=== PATIENT | female | born 1965 | race Hispanic/Latino ===

== ENCOUNTER 2019-11-13 07:52 | Outpatient (CLI) | payer OTHER ==
[2019-11-13 17:10] LABS: #Basophils 0.1 thou/uL (0.0-0.2); #Eosinphils 0.1 thou/uL (0.0-0.7); #Lymphocytes 2.4 thou/uL (1.20-3.40); #Monocytes 0.5 thou/uL (0.11-0.59); #Neutrophils 3.6 thou/uL (1.40-6.50); %Basophils 1.6 % (0.0-1.0); %Eosinophils 2.2 % (0.0-10.0); %Lymphocytes 35.4 % (21.0-51.0); %Monocytes 7.7 % (0.0-10.0); %Neutrophils 53.2 % (42.0-75.0); Hemoglobin 13.3 g/dL (12.0-16.0); Mean Corpuscular HGB CONC 33.6 g/dL (32.0-36.0); Mean Corpuscular Hemoglobin 30.1 pg (27.0-31.0); Mean Corpuscular Volume 89.6 fL (78.0-98.0); Platelet Count 287 thou/uL (130-400); Red Blood Cell (RBC) Count 4.42 mill/uL (4.20-5.40); White Blood Cell (WBC) Count 6.8 thou/uL (4.8-10.8)
[2019-11-13 17:29] LABS: Anion Gap 10 mmol/L (10-20); BUN (Urea Nitrogen) 17 mg/dL (9.8-20.1); Calc. Creatinine Clearance 0 mL/min (70-130); Calcium 9.3 mg/dL (7.8-10.44); Carbon Dioxide 26 mmol/L (22-29); Chloride 105 mmol/L (98-107); Estimated GFR-MDRD 86; Glucose 139 mg/dL (70-105); Potassium 4.1 mmol/L (3.5-5.1); Sodium 137 mmol/L (136-145)
[2019-11-14 11:03] LABS: SARS-CoV-2 MS2 Positive; SARS-CoV-2 N Gene Negative; SARS-CoV-2 S Gene Negative; SARS-CoV-2 orf1ab Negative
== END 2019-11-13 07:53 | disposition home or self-care (01) ==
LOC: LABBT 07:52
PROVIDERS: ATTEND Surgery
DX: Z01.812 Encounter for preprocedural laboratory examination (principal); Z11.59 Encounter for screening for other viral diseases
CPT/HCPCS: 80048; 85025; 87635; U0003

== ENCOUNTER 2019-11-15 06:30 | Day surgery (SDC) | payer MEDICAID, SELFPAY ==
[2019-11-13 15:41] VITALS: BMI 48.4
--- NOTE | 2019-11-15 08:12 | MMO ---
Mammographically guided Needle localization left breast: 11/15/2019 HISTORY: 54-year-old female with DCIS confirmed by stereotactic biopsy. Surgical excision required. TECHNIQUE: Signed informed consent obtained. Left breast compressed in true lateral position with fenestrated pa ddle. Post stereotactic biopsy clip targeted. Lateral approach. Lateral breast skin prepped and draped in usual sterile fashion. 25-gauge needle used to apply buffered lidocaine superficially and d eeply. 7.5 cm [place] needle advanced. Breast then compressed in LCC view.. Needle tip retracted appropriate amount. Wire deployed. Patient tolerated procedure well. No complications. IMPRESSION: Successful needle localization of postbiopsy clip.
--- NOTE | 2019-11-15 10:02 | NM ---
Nuclear medicine lymphoscintigraphy: 11/15/2019 HISTORY: 44-year-old female with DCIS of left breast TECHNIQUE: Signed informed consent obtained. Alcohol swabs applied to each site prior to each injection. 30-gaug e needle used to apply buffered lidocaine in 4 spots in periareolar location. A total of 0.4 mCi of technetium 99m-filtered sulfur colloid was injected with 4 separate tuberculin syringes with 4 separa te 30-gauge needles, at those same 4 periareolar locations. Patient tolerated procedure well. No complications. Immediate anterior and lateral scintigraphic images. FINDINGS: Single sentinel axillary lymph node is demonstrated. IMPRESSION: Successful lymphoscintigraphy with demonstration of sentinel lymph node.
[2019-11-15] MEDS ORDERED: Fentanyl 100 MCG/2 ML VIAL ONE ×4 (11:33→15:26)
[2019-11-15] MEDS ORDERED: Midazolam HCl 2 mg/2 ml Vial ONE (11:33)
[2019-11-15] MEDS ORDERED: Lidocaine 2% Jelly 5 ML TUBE ONE (11:33)
[2019-11-15] MEDS ORDERED: Isosulfan Blue 50 MG/5 ML VIAL ONE (11:42)
[2019-11-15] MEDS ORDERED: Bupivacaine 0.25% HCL 30 ML VIAL ONE (11:45)
[2019-11-15] MEDS ORDERED: Lidocaine 1% w/Epinephrine 1:100K 20 ML VIAL ONE (11:45)
[2019-11-15] MEDS ORDERED: Dexamethasone 20 MG/5 ML VIAL ONE (13:31)
[2019-11-15] MEDS ORDERED: Lidocaine 1% PF 5 ML VIAL ONE (13:31)
[2019-11-15] MEDS ORDERED: Ondansetron PF 4 MG/2 ML Vial ONE ×2 (13:31→14:33)
[2019-11-15] MEDS ORDERED: PROPOFOL 200 MG/20 ML VIAL ONE (13:31)
--- NOTE | 2019-11-15 14:19 | MMO ---
Radiograph surgical specimen: 11/15/2019 HISTORY: 54-year-old female status post needle localization for DCIS of the left breast. FINDINGS: The tissue specimen contains the [place] wire, the biopsy clip, and several tiny calcifications. IMPRESSION: 1. Successful surgical left breast excision. 2. Successful mammographically guided needle localization.
[2019-11-15] MEDS ORDERED: HYDROcodone/Acetaminophen 5/325 mg Tablet ONE (16:47)
--- NOTE | 2019-11-16 11:54 | PDOC.OP ---
Operative Note - Operative Note Operative Note: PROCEDURE: Left breast lumpectomy and sentinel lymph node biopsy SURGEON: Codie Flynn M.D. DATE: 11/15/2019 PREOPERATIVE DIAGNOSIS: Left breast DCIS with possible invasive breast cancer POSTOPERATIVE DIAGNOSIS: Left breast DCIS with possible invasive breast cancer HISTORY: 54-year-old patient with recent mammographic abnormality. Pathology showed DCIS with a possible invasive component. Genetic testing was negative. Recommendation was made to proceed with lumpectomy and sentinel lymph node biopsy. PROCEDURE IN DETAIL: After informed consent was obtained the patient was taken to the operating room and placed in the supine position. General anesthesia was administered and the breast was prepped with alcohol and lymphazurin injected subdermally behind the nipple. The breast was massaged for 5 minutes, and then the patient was positioned, prepped and draped. Local anesthesia was infused to the lower edge of the hairbearing skin of the axilla. The skin was incised and dissection carried down to the area of highest activity by neoprobe. 1 slightly enlarged lymph nodes with increased activity was identified and excised and target counts performed. The lymph node had a target count of 869 and was blue.another area with increased activity was identified adjacent to the enlarged lymph node and another small lymph node dissected out. The second one had a target count of 140 and was not blue. A small segment of blue lymphatics have been incidentally dissected out while dissecting out the first lymph node and this tissue was sent with the second lymph node. Axilla was examined and palpated and no other palpable abnormal nodes nor areas of increased activity were found. The wound was irrigated and hemostasis verified. Additional local anesthesia was infused for postoperative pain control and the subcutaneous tissues were reapproximated with 3-0 Monocryl suture and the skin closed with 4-0 Monocryl suture. attention was then turned to the lumpectomy. The mass in the left inferior lateral breast had been previously marked in the mammography suite. An incision was made medial to the needle and flaps were raised in all directions and dissection was then carried down circumferentially to below the level of the mass. The tissues deep to the mass were then transected and the specimen was removed and marked for orientation with a long lateral, short superior, and looped superficial suture. It was sent for specimen mammogram which showed presence of the clips and calcifications within the specimen. The wound was irrigated and hemostasis obtained using Bovie electrocautery. Additional local anesthesia was infused circumferentially for postoperative pain control. The subcutaneous tissues were reapproximated with a running 3-0 Monocryl suture and additional local anesthesia infused into the biopsy cavity. The skin was then closed with a running 4-0 subcuticular Monocryl suture. Dermabond dressings were placed to both incisions and once this was dry, fluffs compression dressings were placed and secured to the skin with tape. The patient was extubated and taken to the recovery room in good condition. Estimated blood loss was minimal. There were no complications. Specimens are sentinel lymph nodes x2 and left inferolateral breast mass.
== END 2019-11-15 17:25 | disposition home or self-care (01) ==
LOC: SDC 06:30
PROVIDERS: ATTEND Surgery
PROC: 07B60ZX Excision of Left Axillary Lymphatic, Open Approach, Diagnostic (ICD-10-PCS; principal; 2019-11-15)
PROC: 0HBU0ZZ Excision of Left Breast, Open Approach (ICD-10-PCS; principal; 2019-11-15)
DX: C50.912 Malignant neoplasm of unspecified site of left female breast (principal); E11.9 Type 2 diabetes mellitus without complications; Z79.84 Long term (current) use of oral hypoglycemic drugs
CPT/HCPCS: 19281; 76098; 78195; 88307; 88342; A9541; J0690; J1100; J2001; J2250; J2405; J2704; J3010; Q9968; S0020

== ENCOUNTER 2019-11-30 08:02 | Outpatient (CLI) | payer MEDICAID, OTHER ==
[2019-12-01 11:33] LABS: SARS-CoV-2 MS2 Positive; SARS-CoV-2 N Gene Negative; SARS-CoV-2 S Gene Negative; SARS-CoV-2 orf1ab Negative
== END 2019-11-30 08:03 | disposition home or self-care (01) ==
LOC: LABBT 08:02
PROVIDERS: ATTEND Surgery
DX: Z01.812 Encounter for preprocedural laboratory examination (principal); Z11.59 Encounter for screening for other viral diseases; C50.919 Malignant neoplasm of unspecified site of unspecified female breast
CPT/HCPCS: 87635; U0003

== ENCOUNTER 2019-12-05 09:14 | Day surgery (SDC) | payer MEDICAID ==
[2019-11-29 08:56] VITALS: BMI 51.4
[2019-12-05] MEDS ORDERED: Fentanyl 100 MCG/2 ML VIAL ONE ×2 (10:05→12:21)
[2019-12-05] MEDS ORDERED: Dexamethasone 20 MG/5 ML VIAL ONE (11:48)
[2019-12-05] MEDS ORDERED: Lidocaine 1% PF 5 ML VIAL ONE (11:48)
[2019-12-05] MEDS ORDERED: Ondansetron PF 4 MG/2 ML Vial ONE (11:48)
[2019-12-05] MEDS ORDERED: PROPOFOL 200 MG/20 ML VIAL ONE (11:48)
[2019-12-05] MEDS ORDERED: HYDROcodone/Acetaminophen 5/325 mg Tablet ONE (13:47)
--- NOTE | 2019-12-07 13:04 | PDOC.OP ---
Operative Note - Operative Note Operative Note: PROCEDURE: Reexcision left breast cancer SURGEON: Codie Flynn M.D. DATE: 12/05/2019 PREOPERATIVE DIAGNOSIS: Left breast cancer POSTOPERATIVE DIAGNOSIS: Left breast cancer HISTORY: Patient with recently diagnosed invasive ductal carcinoma of the left breast. She underwent lumpectomy and sentinel lymph node biopsy. The sentinel lymph nodes were negative but she had a focally positive lateral margin for invasive cancer and multiple positive or close margins for DCIS so reexcision was recommended. PROCEDURE IN DETAIL: After informed consent was obtained the patient was taken to the operating room and placed in the supine position. General anesthesia was administered and the breast was prepped and draped in standard sterile fashion. Local anesthesia was infused to the skin and subcutaneous tissues at the previous lumpectomy site and the incision was reopened. The subcutaneous tissues were cut and the biopsy cavity entered. Seroma fluid was suctioned out. The entire cavity was reexcised taking about 1 cm margins on all edges with a more generous lateral margin. The specimen was oriented with a long lateral, short superior, and looped superficial suture. The wound was irrigated and hemostasis obtained using Bovie electrocautery. Additional local anesthesia was infused for postoperative pain control. The subcutaneous tissues were reapproximated with a running 3-0 Monocryl suture and the skin was closed with a running subcuticular 4-0 Monocryl suture. Dermabond dressings were placed and the patient was extubated and taken to recovery in good condition. Estimated blood loss was minimal. There were no complications. Specimen is left breast mass reexcision.
== END 2019-12-05 14:20 | disposition home or self-care (01) ==
LOC: SDC 09:14
PROVIDERS: ATTEND Surgery
PROC: 0HBU0ZZ Excision of Left Breast, Open Approach (ICD-10-PCS; principal; 2019-12-05)
DX: C50.912 Malignant neoplasm of unspecified site of left female breast (principal); E11.9 Type 2 diabetes mellitus without complications; Z79.84 Long term (current) use of oral hypoglycemic drugs
CPT/HCPCS: 88307; J0690; J1100; J2001; J2405; J2704; J3010

== ENCOUNTER 2019-12-18 05:48 | Outpatient (CLI) | payer MEDICAID, OTHER ==
[2019-12-19 12:46] LABS: SARS-CoV-2 MS2 Positive; SARS-CoV-2 N Gene Negative; SARS-CoV-2 S Gene Negative; SARS-CoV-2 orf1ab Negative
== END 2019-12-18 05:49 | disposition home or self-care (01) ==
LOC: LABBT 05:48
PROVIDERS: ATTEND Surgery
DX: Z01.812 Encounter for preprocedural laboratory examination (principal); Z11.59 Encounter for screening for other viral diseases; C50.912 Malignant neoplasm of unspecified site of left female breast
CPT/HCPCS: 87635; U0003

== ENCOUNTER 2019-12-21 09:00 | Day surgery (SDC) | payer MEDICAID, OTHER ==
[2019-12-17 16:09] VITALS: BMI 49.9
[2019-12-21] MEDS ORDERED: Fentanyl 100 MCG/2 ML VIAL ONE ×4 (11:19→14:08)
[2019-12-21] MEDS ORDERED: Bupivacaine 0.25% HCL 30 ML VIAL ONE (11:20)
[2019-12-21] MEDS ORDERED: Lidocaine 1% w/Epinephrine 1:100K 20 ML VIAL ONE (11:20)
[2019-12-21] MEDS ORDERED: Dexamethasone 20 MG/5 ML VIAL ONE (12:28)
[2019-12-21] MEDS ORDERED: Lidocaine 1% PF 5 ML VIAL ONE (12:28)
[2019-12-21] MEDS ORDERED: PROPOFOL 200 MG/20 ML VIAL ONE (12:28)
[2019-12-21] MEDS ORDERED: Morphine 4 MG/ML VIAL ONE (14:05)
[2019-12-21] MEDS ORDERED: Morphine 2 MG/ML VIAL ONE (14:15)
[2019-12-21] MEDS ORDERED: HYDROcodone/Acetaminophen 5/325 mg Tablet ONE (15:32)
--- NOTE | 2019-12-25 11:08 | PDOC.OP ---
Operative Note - Operative Note Operative Note: PROCEDURE: Reexcision left breast lumpectomy anterior and medial margins SURGEON: Codie Flynn M.D. DATE: 12/21/2019 PREOPERATIVE DIAGNOSIS: Left breast cancer POSTOPERATIVE DIAGNOSIS: Left breast cancer HISTORY: Patient with left breast cancer discovered on screening mammography. She underwent needle localized excisional biopsy and sentinel lymph node. Her lymph nodes were negative but she did have multiple positive margins on her excision. She underwent reexcision of the biopsy cavity with mostly negative margins but she had focal positivity anteriorly and close margins medially. She decided to undergo reexcision of these margins. FINDINGS: Very little tissue anteriorly. Entire anterior and medial margins of the previous biopsy cavity were reexcised. PROCEDURE IN DETAIL: After informed consent was obtained and appropriate preoperative antibiotics were administered the patient was taken to the operating room where she was placed in supine position and anesthesia was administered. She was prepped and draped in the standard sterile fashion and local anesthesia infused to the skin and subcutaneous tissues overlying her previous biopsy site. The skin incision was reopened and the anterior and medial margins of the biopsy cavity were excised. In portions, especially directly underlying the incision, the anterior tissue was very thin and the previous biopsy cavity was entered, but the entire anterior margin was reexcised , as well as a generous margin medially. The specimen was marked for orientation with a long medial short superior and looped superficial suture. The operative site was irrigated and hemostasis verified. Additional local anesthesia was infused for postoperative pain control. The subcutaneous tissues were reapproximated with a running 3-0 Monocryl suture and the skin incision was closed with a running 4-0 subcuticular Monocryl suture. Dermabond dressings were applied and once these were dry a fluff dressing was placed. The patient was extubated and taken to recovery in good condition. Estimated blood loss was minimal. There were no complications. Specimen is extended anterior and medial margins of left breast biopsy.
== END 2019-12-21 16:40 | disposition home or self-care (01) ==
LOC: SDC 09:00
PROVIDERS: ATTEND Surgery
PROC: 0HBU0ZZ Excision of Left Breast, Open Approach (ICD-10-PCS; principal; 2019-12-21)
DX: C50.912 Malignant neoplasm of unspecified site of left female breast (principal); E11.9 Type 2 diabetes mellitus without complications; Z79.84 Long term (current) use of oral hypoglycemic drugs
CPT/HCPCS: 88307; J0690; J1100; J2270; J2704; J3010; S0020

== ENCOUNTER 2020-04-10 14:41 | Outpatient (CLI) | payer MEDICAID ==
--- NOTE | 2020-04-10 17:52 | BD ---
Exam: DEXA Bone Density 04/10/20 HISTORY: Postmenopausal screening for osteoporosis. BMD (g/cm2) T-SCORE Z-SCORE Right forearm: UD 0.442 0.0 0.7 Mid 0.598 -0.2 0.8 1/3 0.649 -0.8 0.2 Total 0.567 -0.3 0.7 Left forearm: UD 0.488 0.8 1.4 Mid 0.600 -0.1 0.8 1/3 0.767 1.2 2.2 Total: 0.611 0.6 1.5 Impression: Normal BMD. POS: [facility]
== END 2020-04-10 14:42 | disposition home or self-care (01) ==
LOC: BICMAMMO 14:41
PROVIDERS: ATTEND Internal Medicine Hematology & Oncology
DX: Z13.820 Encounter for screening for osteoporosis (principal); N95.8 Other specified menopausal and perimenopausal disorders; C50.512 Malignant neoplasm of lower-outer quadrant of left female breast
CPT/HCPCS: 77080

== ENCOUNTER 2020-07-07 14:39 | Outpatient (CLI) | payer OTHER ==
--- NOTE | 2020-07-07 15:49 | MMO ---
Right Breast MAMMO Unilat Diag DDI RT+MAYITO. CLINICAL HISTORY: Patient is 54 years old and is seen for diagnostic exam and palpable abnormality in the right breast. The patient has the following family history of breast cancer: 2 maternal aunts and maternal grandmother. The patient has a history of Excisional biopsy procedure revealed multifocal invasive ductal left breast carcinoma in November,. The patient has a history of left Stereotatic Biopsy in September,, left Excisional Biopsy in September, - malignant and Lumpectomy in 2019 - malignant. VIEWS: The views performed were: right craniocaudal; right craniocaudal with tomosynthesis; right mediolateral oblique with tomosynthesis; and right mediolateral with tomosynthesis. FILMS COMPARED: The present examination has been compared to prior imaging studies performed at [facility] on 06/04/2019 and 08/15/2019, and at [facility] on 09/17/2019 and 07/07/2020. This study has been interpreted with the assistance of computer-aided detection. MAMMOGRAM FINDINGS: There are scattered fibroglandular densities. Ultrasound of palpable finding -- 4 mm hyperechoic focus. No mammographic finding to account for the palpable finding. IMPRESSION: FINDING IN THE RIGHT BREAST IS PROBABLY BENIGN. FOLLOW-UP IN 6 MONTHS IS RECOMMENDED. THE RESULTS OF THIS EXAM WERE SENT TO THE PATIENT. ACR BI-RADS Category 3 - Probably benign finding - short interval follow-up suggested. [facility] will notify the patient of the need for additional imaging services. MAMMOGRAPHY NOTE: 1. A negative mammogram report should not delay a biopsy if a dominant of clinically suspicious mass is present. 2. Approximately 10% to 15% of breast cancers are not detected by mammography. 3. Adenosis and dense breasts may obscure an underlying neoplasm. Reported by: MARTHA TAPIA MD Electonically Signed: [id number]
--- NOTE | 2020-07-07 15:56 | ULT ---
RIGHT BREAST ULTRASOUND: HISTORY: The patient presents with a palpable finding at the 12 o'clock position right breast for mammogram an d ultrasound. The right breast is evaluated in the region of palpable concern which is at 12 o'clock approximately 8 cm from the nipple. There is a 0.2 x 0.4 x 0.4 cm diameter circumscribed hyperechoic focus fairly superficial which appears to account for the palpable finding. This could represent a very small lip [place]. This does not have an appearance suggesting that of a malignancy. BIRADS category 3, probably benign findings. Six-month followup right unilateral diagnostic mammogra m and right breast ultrasound is recommended for further assessment. POS: OFF
== END 2020-07-07 14:40 | disposition home or self-care (01) ==
LOC: BICMAMMO 14:39
PROVIDERS: ATTEND Internal Medicine Hematology & Oncology
DX: N63.22 Unspecified lump in the left breast, upper inner quadrant (principal); Z85.3 Personal history of malignant neoplasm of breast
CPT/HCPCS: G0279

== ENCOUNTER 2020-09-16 22:40 | Inpatient (IN) | payer OTHER ==
[2020-09-16] MEDS ORDERED: Acetaminophen 500 MG TAB ONE (23:04)
[2020-09-16 23:23] LABS: #Lymphocytes 0.8 thou/uL (1.20-3.40); #Monocytes 0.5 thou/uL (0.11-0.59); #Neutrophils 9.6 thou/uL (1.40-6.50); %Basophils 0.3 % (0.0-1.0); %Eosinophils 0.2 % (0.0-10.0); %Lymphocytes 7.4 % (21.0-51.0); %Monocytes 4.9 % (0.0-10.0); %Neutrophils 87.1 % (42.0-75.0); Hemoglobin 13.4 g/dL (12.0-16.0); Mean Corpuscular HGB CONC 34.8 g/dL (32.0-36.0); Mean Corpuscular Hemoglobin 32.1 pg (27.0-31.0); Mean Corpuscular Volume 92.1 fL (78.0-98.0); Mean Platelet Volume 7.2 fL (7.4-10.4); Platelet Count 209 thou/uL (130-400); RBC Distribution Width 12.8 % (11.5-14.5); Red Blood Cell (RBC) Count 4.17 mill/uL (4.20-5.40); White Blood Cell (WBC) Count 11.1 thou/uL (4.8-10.8)
[2020-09-16] MEDS ORDERED: Piperacillin/Tazobactam 4.5 GM VIAL ONE (23:23)
[2020-09-16 23:44] LABS: ALT (SGPT) 11 U/L (8-55); AST (SGOT) 11 U/L (5-34); Albumin 3.7 g/dL (3.5-5.0); Alkaline Phosphatase 65 U/L (40-110); Anion Gap 16 mmol/L (10-20); BUN (Urea Nitrogen) 7 mg/dL (9.8-20.1); Calc. Creatinine Clearance 0 mL/min (70-130); Calcium 8.7 mg/dL (7.8-10.44); Carbon Dioxide 20 mmol/L (22-29); Chloride 100 mmol/L (98-107); Globulin 3.4 g/dL (2.4-3.5); Glucose 320 mg/dL (70-105); Potassium 3.8 mmol/L (3.5-5.1); Protein, Total 7.1 g/dL (6.0-8.3); Sodium 132 mmol/L (136-145)
[2020-09-17] MEDS ORDERED: Vancomycin 1 GM/200 ML BAG ONE (00:13)
[2020-09-17] MEDS ORDERED: Ondansetron ODT 4 MG TAB SL PRN (03:00)
[2020-09-17] MEDS ORDERED: Ondansetron PF 4 MG/2 ML Vial IVP PRN (03:00)
[2020-09-17 03:13] VITALS: BMI 46.3
[2020-09-17] MEDS: Sodium Chloride 0.9% 1,000 ML IV SCH ×3 (05:36→12:52)
[2020-09-17] MEDS ORDERED: Piperacillin/Tazobactam 4.5 GM in Sodium Chloride 0.9% 100 ML IVPB SCH (06:00)
[2020-09-17] MEDS ORDERED: Lidocaine 1% w/Epinephrine 1:100K 20 ML VIAL NERVE BLCK SCH (07:00)
[2020-09-17] MEDS ORDERED: Prevnar 13-Val Conj/PF 0.5 ML SYRINGE IM ONE (09:00)
[2020-09-17 09:36] LABS: SARS-CoV-2 PCR by NAA Not Detected (NotDetected)
[2020-09-17] MEDS ORDERED: Acetaminophen 325 MG TAB PO PRN ×2 (11:08)
[2020-09-17 11:40] LABS: Hemoglobin A1c 12.1 % (4.0-6.0)
[2020-09-17] MEDS ORDERED: Dextrose 5% in Water 1,000 ML IV PRN (12:16)
[2020-09-17] MEDS ORDERED: Dextrose 50% Abboject 50 ML SYRINGE SLOW IVP PRN (12:16)
[2020-09-17] MEDS ORDERED: HumaLOG 300 UNITS/3 ML VIAL SC PRN (12:16)
[2020-09-17] MEDS ORDERED: Dulaglutide [Trulicity] 0.75 MG/0.5 ML Pen.Injctr SC SCH (12:30)
[2020-09-17] MEDS: Piperacillin/Tazobactam 3.375 GM in Sodium Chloride 0.9% 100 ML IVPB SCH ×2 (12:52→18:28)
[2020-09-17] MEDS ORDERED: glipiZIDE 10 MG TAB PO SCH (13:00)
[2020-09-17] MEDS: Clindamycin/D5W 900 MG in Premix Bag 1 BAG IVPB SCH ×2 (14:34→21:02)
[2020-09-18] MEDS: Piperacillin/Tazobactam 3.375 GM in Sodium Chloride 0.9% 100 ML IVPB SCH ×4 (00:04→20:11)
[2020-09-18] MEDS: Sodium Chloride 0.9% 1,000 ML IV SCH ×3 (00:09→19:12)
[2020-09-18] MEDS: Clindamycin/D5W 900 MG in Premix Bag 1 BAG IVPB SCH ×3 (04:32→21:40)
[2020-09-18 08:12] LABS: #Eosinphils 0.2 thou/uL (0.0-0.7); #Lymphocytes 1.4 thou/uL (1.20-3.40); #Monocytes 0.7 thou/uL (0.11-0.59); #Neutrophils 2.7 thou/uL (1.40-6.50); %Basophils 0.6 % (0.0-1.0); %Eosinophils 4.2 % (0.0-10.0); %Lymphocytes 28.1 % (21.0-51.0); %Monocytes 13.2 % (0.0-10.0); %Neutrophils 53.8 % (42.0-75.0); Mean Corpuscular HGB CONC 33.8 g/dL (32.0-36.0); Mean Corpuscular Hemoglobin 31.8 pg (27.0-31.0); Mean Platelet Volume 7.4 fL (7.4-10.4); Platelet Count 151 thou/uL (130-400); RBC Distribution Width 12.8 % (11.5-14.5); Red Blood Cell (RBC) Count 3.77 mill/uL (4.20-5.40)
[2020-09-18] MEDS: traMADol HCl 50 MG TAB PO PRN ×2 (08:23→20:13)
[2020-09-18] MEDS: Saccharomyces boulardii 250 MG CAP PO SCH (08:24)
[2020-09-18] MEDS: glipiZIDE 10 MG TAB PO SCH (08:24)
[2020-09-18] MEDS: Aspirin Chewable 81 MG TAB PO SCH (08:24)
[2020-09-18 08:31] LABS: Anion Gap 17 mmol/L (10-20); BUN (Urea Nitrogen) Less than 4 mg/dL (9.8-20.1); Calc. Creatinine Clearance 207 mL/min (70-130); Calcium 7.4 mg/dL (7.8-10.44); Carbon Dioxide 14 mmol/L (22-29); Chloride 110 mmol/L (98-107); Glucose 202 mg/dL (70-105); Potassium 4.4 mmol/L (3.5-5.1); Sodium 137 mmol/L (136-145)
[2020-09-18] MEDS ORDERED: Non-Formulary Item 1 EACH (Tamoxifen Citrate [Tamoxifen Citrate] 20 MG Tablet) PO SCH (09:00)
[2020-09-19] MEDS: traMADol HCl 50 MG TAB PO PRN ×2 (00:39→08:10)
[2020-09-19] MEDS: Clindamycin/D5W 900 MG in Premix Bag 1 BAG IVPB SCH ×3 (05:07→22:28)
[2020-09-19] MEDS: Sodium Chloride 0.9% 1,000 ML IV SCH ×2 (05:07→15:08)
[2020-09-19] MEDS: Piperacillin/Tazobactam 3.375 GM in Sodium Chloride 0.9% 100 ML IVPB SCH ×5 (05:07→23:48)
[2020-09-19 06:59] LABS: #Basophils 0.1 thou/uL (0.0-0.2); #Eosinphils 0.1 thou/uL (0.0-0.7); #Lymphocytes 1.4 thou/uL (1.20-3.40); #Monocytes 0.6 thou/uL (0.11-0.59); %Basophils 1.3 % (0.0-1.0); %Eosinophils 2.2 % (0.0-10.0); %Lymphocytes 33.7 % (21.0-51.0); %Monocytes 14.1 % (0.0-10.0); %Neutrophils 48.7 % (42.0-75.0); Hemoglobin 11.6 g/dL (12.0-16.0); Mean Corpuscular HGB CONC 33.4 g/dL (32.0-36.0); Mean Corpuscular Hemoglobin 31.3 pg (27.0-31.0); Mean Corpuscular Volume 93.7 fL (78.0-98.0); Mean Platelet Volume 7.1 fL (7.4-10.4); Platelet Count 179 thou/uL (130-400); RBC Distribution Width 12.9 % (11.5-14.5); Red Blood Cell (RBC) Count 3.72 mill/uL (4.20-5.40); White Blood Cell (WBC) Count 4.1 thou/uL (4.8-10.8)
[2020-09-19 07:16] LABS: Anion Gap 16 mmol/L (10-20); BUN (Urea Nitrogen) 5 mg/dL (9.8-20.1); Calc. Creatinine Clearance 197 mL/min (70-130); Carbon Dioxide 18 mmol/L (22-29); Chloride 107 mmol/L (98-107); Glucose 263 mg/dL (70-105); Potassium 3.4 mmol/L (3.5-5.1); Sodium 138 mmol/L (136-145)
[2020-09-19] MEDS: Aspirin Chewable 81 MG TAB PO SCH (08:10)
[2020-09-19] MEDS: glipiZIDE 10 MG TAB PO SCH (08:10)
[2020-09-19] MEDS: Saccharomyces boulardii 250 MG CAP PO SCH (08:11)
[2020-09-19] MEDS ORDERED: Dextrose 5% in Water 1,000 ML IV PRN (09:15)
[2020-09-19] MEDS ORDERED: Dextrose 50% Abboject 50 ML SYRINGE IVP PRN (09:15)
[2020-09-19] MEDS ORDERED: Bupivacaine 0.25% HCL 30 ML VIAL ONE (11:53)
[2020-09-19] MEDS ORDERED: Lidocaine 1% w/Epinephrine 1:100K 20 ML VIAL ONE (11:53)
[2020-09-19] MEDS ORDERED: Fentanyl 100 MCG/2 ML VIAL ONE ×2 (11:58→13:47)
[2020-09-19] MEDS ORDERED: Midazolam HCl 2 mg/2 ml Vial ONE (11:58)
[2020-09-19] MEDS ORDERED: Piperacillin/Tazobactam 3.375 GM VIAL ONE (12:11)
[2020-09-19] MEDS ORDERED: Famotidine/PF 20 mg/2ml Vial ONE (12:12)
[2020-09-19] MEDS ORDERED: Ondansetron PF 4 MG/2 ML Vial ONE (12:14)
[2020-09-19] MEDS ORDERED: Ketorolac Tromethamine 30 MG/ML VIAL ONE (12:14)
[2020-09-19] MEDS ORDERED: PROPOFOL 200 MG/20 ML VIAL ONE (12:14)
[2020-09-19] MEDS ORDERED: Lidocaine 1% PF 5 ML VIAL ONE (12:14)
[2020-09-19] MEDS ORDERED: Metoclopramide HCl 10 MG/2 ML VIAL ONE (12:14)
[2020-09-19] MEDS ORDERED: Ondansetron HCl/PF 4 MG/2 ML Vial IVP PRN (13:30)
[2020-09-19] MEDS ORDERED: Promethazine HCl 25 MG/ML VIAL IM PRN (13:30)
[2020-09-19] MEDS ORDERED: Promethazine HCl 25 MG/ML VIAL SLOW IVP PRN (13:30)
[2020-09-19] MEDS ORDERED: traMADol HCl 50 MG TAB PO PRN (14:21)
[2020-09-19] MEDS ORDERED: HYDROcodone/Acetaminophen 5/325 mg Tablet PO PRN (14:21)
[2020-09-19] MEDS ORDERED: Potassium Chloride 20 MEQ TAB PO SCH (15:00)
[2020-09-19] MEDS: Lantus 1000 UNITS/10 ML VIAL SC SCH (21:42)
[2020-09-19] MEDS: HYDROcodone/Acetaminophen 5/325 mg Tablet PO PRN (23:48)
[2020-09-20] MEDS: Clindamycin/D5W 900 MG in Premix Bag 1 BAG IVPB SCH ×3 (06:06→21:29)
[2020-09-20] MEDS: HumaLOG 300 UNITS/3 ML VIAL SC PRN ×2 (06:06→17:24)
[2020-09-20] MEDS: Piperacillin/Tazobactam 3.375 GM in Sodium Chloride 0.9% 100 ML IVPB SCH ×3 (06:06→17:22)
[2020-09-20] MEDS: Sodium Chloride 0.9% 1,000 ML IV SCH ×3 (06:07→21:29)
[2020-09-20 08:34] LABS: #Eosinphils 0.1 thou/uL (0.0-0.7); #Lymphocytes 1.6 thou/uL (1.20-3.40); #Monocytes 0.5 thou/uL (0.11-0.59); #Neutrophils 1.9 thou/uL (1.40-6.50); %Basophils 0.6 % (0.0-1.0); %Eosinophils 3.3 % (0.0-10.0); %Lymphocytes 38.6 % (21.0-51.0); %Monocytes 11.5 % (0.0-10.0); %Neutrophils 45.9 % (42.0-75.0); Hemoglobin 12.2 g/dL (12.0-16.0); Mean Corpuscular HGB CONC 34.2 g/dL (32.0-36.0); Mean Corpuscular Hemoglobin 32.3 pg (27.0-31.0); Mean Corpuscular Volume 94.3 fL (78.0-98.0); Mean Platelet Volume 6.8 fL (7.4-10.4); Platelet Count 205 thou/uL (130-400); RBC Distribution Width 12.7 % (11.5-14.5); Red Blood Cell (RBC) Count 3.77 mill/uL (4.20-5.40); White Blood Cell (WBC) Count 4.1 thou/uL (4.8-10.8)
[2020-09-20 08:49] LABS: Anion Gap 12 mmol/L (10-20); BUN (Urea Nitrogen) 6 mg/dL (9.8-20.1); Calc. Creatinine Clearance 207 mL/min (70-130); Calcium 8.1 mg/dL (7.8-10.44); Carbon Dioxide 23 mmol/L (22-29); Chloride 106 mmol/L (98-107); Glucose 166 mg/dL (70-105); Potassium 3.5 mmol/L (3.5-5.1); Sodium 137 mmol/L (136-145)
[2020-09-20] MEDS: glipiZIDE 10 MG TAB PO SCH (09:33)
[2020-09-20] MEDS: Saccharomyces boulardii 250 MG CAP PO SCH (09:33)
[2020-09-20] MEDS: Aspirin Chewable 81 MG TAB PO SCH (09:34)
[2020-09-20] MEDS: Lantus 1000 UNITS/10 ML VIAL SC SCH ×2 (09:35→21:29)
[2020-09-20] MEDS: HYDROcodone/Acetaminophen 5/325 mg Tablet PO PRN (14:02)
[2020-09-21] MEDS: Piperacillin/Tazobactam 3.375 GM in Sodium Chloride 0.9% 100 ML IVPB SCH ×4 (00:27→17:39)
[2020-09-21] MEDS: Clindamycin/D5W 900 MG in Premix Bag 1 BAG IVPB SCH ×3 (05:09→20:36)
[2020-09-21] MEDS: HumaLOG 300 UNITS/3 ML VIAL SC PRN ×2 (06:02→12:38)
[2020-09-21] MEDS: glipiZIDE 10 MG TAB PO SCH (08:48)
[2020-09-21] MEDS: Saccharomyces boulardii 250 MG CAP PO SCH (08:48)
[2020-09-21] MEDS: Sodium Chloride 0.9% 1,000 ML IV SCH ×2 (08:48→14:38)
[2020-09-21] MEDS: Aspirin Chewable 81 MG TAB PO SCH (08:48)
[2020-09-21] MEDS: Lantus 1000 UNITS/10 ML VIAL SC SCH ×2 (08:50→20:35)
[2020-09-21 09:11] LABS: Anion Gap 17 mmol/L (10-20); BUN (Urea Nitrogen) 6 mg/dL (9.8-20.1); Calc. Creatinine Clearance 204 mL/min (70-130); Carbon Dioxide 16 mmol/L (22-29); Chloride 112 mmol/L (98-107); Glucose 178 mg/dL (70-105); Magnesium 1.8 mg/dL (1.6-2.6); Potassium 4.7 mmol/L (3.5-5.1); Sodium 140 mmol/L (136-145)
[2020-09-21] MEDS: HYDROcodone/Acetaminophen 5/325 mg Tablet PO PRN (12:35)
[2020-09-21 12:40] LABS: #Eosinphils 0.2 thou/uL (0.0-0.7); #Lymphocytes 1.3 thou/uL (1.20-3.40); #Monocytes 0.4 thou/uL (0.11-0.59); #Neutrophils 1.6 thou/uL (1.40-6.50); %Basophils 1.1 % (0.0-1.0); %Eosinophils 4.8 % (0.0-10.0); %Lymphocytes 37.1 % (21.0-51.0); %Monocytes 11.8 % (0.0-10.0); %Neutrophils 45.3 % (42.0-75.0); Hemoglobin 10.9 g/dL (12.0-16.0); Mean Corpuscular HGB CONC 34.5 g/dL (32.0-36.0); Mean Corpuscular Hemoglobin 32.8 pg (27.0-31.0); Mean Corpuscular Volume 94.9 fL (78.0-98.0); Mean Platelet Volume 6.7 fL (7.4-10.4); Platelet Count 184 thou/uL (130-400); RBC Distribution Width 12.8 % (11.5-14.5); Red Blood Cell (RBC) Count 3.31 mill/uL (4.20-5.40); White Blood Cell (WBC) Count 3.6 thou/uL (4.8-10.8)
[2020-09-22] MEDS: Piperacillin/Tazobactam 3.375 GM in Sodium Chloride 0.9% 100 ML IVPB SCH ×2 (00:05→05:07)
[2020-09-22] MEDS: HYDROcodone/Acetaminophen 5/325 mg Tablet PO PRN (00:06)
[2020-09-22] MEDS: Sodium Chloride 0.9% 1,000 ML IV SCH (02:16)
[2020-09-22 06:16] LABS: #Eosinphils 0.1 thou/uL (0.0-0.7); #Lymphocytes 1.5 thou/uL (1.20-3.40); #Monocytes 0.4 thou/uL (0.11-0.59); #Neutrophils 1.4 thou/uL (1.40-6.50); %Basophils 1.4 % (0.0-1.0); %Eosinophils 4.1 % (0.0-10.0); %Lymphocytes 42.8 % (21.0-51.0); %Monocytes 12.5 % (0.0-10.0); %Neutrophils 39.3 % (42.0-75.0); Hemoglobin 10.5 g/dL (12.0-16.0); Mean Corpuscular HGB CONC 32.7 g/dL (32.0-36.0); Mean Corpuscular Volume 94.8 fL (78.0-98.0); Mean Platelet Volume 6.8 fL (7.4-10.4); Platelet Count 194 thou/uL (130-400); Red Blood Cell (RBC) Count 3.39 mill/uL (4.20-5.40); White Blood Cell (WBC) Count 3.5 thou/uL (4.8-10.8)
[2020-09-22] MEDS: Clindamycin/D5W 900 MG in Premix Bag 1 BAG IVPB SCH (06:17)
[2020-09-22 06:38] LABS: Anion Gap 10 mmol/L (10-20); BUN (Urea Nitrogen) 6 mg/dL (9.8-20.1); Calc. Creatinine Clearance 214 mL/min (70-130); Calcium 7.8 mg/dL (7.8-10.44); Carbon Dioxide 24 mmol/L (22-29); Chloride 108 mmol/L (98-107); Glucose 197 mg/dL (70-105); Magnesium 1.8 mg/dL (1.6-2.6); Potassium 3.3 mmol/L (3.5-5.1); Sodium 139 mmol/L (136-145)
[2020-09-22] MEDS: glipiZIDE 10 MG TAB PO SCH (08:54)
[2020-09-22] MEDS: Aspirin Chewable 81 MG TAB PO SCH (08:55)
[2020-09-22] MEDS: Lantus 1000 UNITS/10 ML VIAL SC SCH (08:55)
[2020-09-22] MEDS: Saccharomyces boulardii 250 MG CAP PO SCH (08:56)
[2020-09-22 09:29] VITALS: BP 129/65; TEMP 97.6
== END 2020-09-22 09:55 | disposition home or self-care (01) | DRG 854 ==
LOC: ERS 22:40 → ONC 09-17 01:14
PROVIDERS: ADMIT Surgery; ATTEND Internal Medicine
PROC: 0H9U3ZX Drainage of Left Breast, Percutaneous Approach, Diagnostic (ICD-10-PCS; principal; 2020-09-17)
PROC: 0JB60ZZ Excision of Chest Subcutaneous Tissue and Fascia, Open Approach (ICD-10-PCS; 2020-09-19)
DX: A41.9 Sepsis, unspecified organism (principal); Z68.42 Body mass index [BMI] 45.0-49.9, adult; N61.1 Abscess of the breast and nipple; Z20.822 Contact with and (suspected) exposure to COVID-19; E11.65 Type 2 diabetes mellitus with hyperglycemia; E87.6 Hypokalemia; D63.8 Anemia in other chronic diseases classified elsewhere; E66.01 Morbid (severe) obesity due to excess calories; Z85.3 Personal history of malignant neoplasm of breast; Z79.899 Other long term (current) drug therapy; Z79.82 Long term (current) use of aspirin; Z79.84 Long term (current) use of oral hypoglycemic drugs
CPT/HCPCS: 36415; 36416; 71045; 74220; 74230; 80048; 80053; 83036; 83605; 83735; 85025; 87040; 87070; 87205; 87635; 88305; 96365; 96367; J1815; J1885; J2250; J2405; J2543; J2704; J2765; J3010; J3370; J3490; S0020; S0028; U0003; U0005